=== PATIENT | male | born 1995 | race Caucasian/White ===

== ENCOUNTER 2017-10-18 08:41 | Emergency (ER) | payer OTHER ==
[~2017-10-18] VITALS: Ht 182.9 cm; Wt 62.6 kg
[2017-10-18 10:14] LABS: BASOPHILS # (AUTO) 0.01 x10^3/uL (0-0.1); BASOPHILS % (AUTO) 0 % (0-1); EOSINOPHILS # (AUTO) 0.14 x10^3/uL (0-0.4); EOSINOPHILS % (AUTO) 2 % (1-7); LYMPHOCYTES # (AUTO) 0.51 x10^3/uL (1-3.4); LYMPHOCYTES % (AUTO) 6 % (22-44); MD NO; MEAN CORPUSCULAR HGB CONC 33.8 g/dL (33.2-36.2); MEAN CORPUSCULAR VOLUME 85.7 fL (81-97); MEAN PLATELET VOLUME 8.4 fL (7.4-10.4); MONOCYTES % (AUTO) 12 % (2-9); NEUTROPHILS # (AUTO) 6.41 x10^3/uL (1.8-6.8); NEUTROPHILS % (AUTO) 80 % (42-75); PLATELET COUNT 283 x10^3/uL (130-400); RED BLOOD COUNT 5.58 x10^6/uL (4.38-5.82)
[2017-10-18 10:23] LABS: ALANINE AMINOTRANSFERASE 14 U/L (12-78); ALBUMIN 4.8 g/dL (3.4-5.0); ANION GAP 7 mmol/L (5-15); CALCIUM 9.5 mg/dL (8.5-10.1); CHLORIDE 101 mmol/L (98-107); CREATININE 0.96 mg/dL (0.7-1.3)
[2017-10-18 10:24] LABS: ALKALINE PHOSPHATASE 71 U/L (45-117); BILIRUBIN,TOTAL 0.5 mg/dL (0.2-1.0)
[2017-10-18 11:01] LABS: MICROSCOPIC AUTO
[2017-10-18 11:40] LABS: CULTURE INDICATED? NO
[2017-10-18 11:44] VITALS: BP 128/81
[2017-10-18] MEDS ORDERED: KETOROLAC 30 MG/1 ML ONE (12:17)
[2017-10-18] MEDS ORDERED: KETOROLAC 30 MG/1 ML IM ONE (12:30)
== END 2017-10-18 12:36 | disposition home or self-care (01) ==
LOC: ED 10:40
DX: R10.84 Generalized abdominal pain (principal)
CPT/HCPCS: 36415; 80053; 81001; 83690; 85025; 96372; 99284; J1885